=== PATIENT | male | born 1945 | race Caucasian/White ===

== ENCOUNTER 2025-08-22 07:20 | Outpatient (CLI) | payer MEDICARE, OTHER ==
[2025-08-22 07:56] LABS: ALT (SGPT) 37 U/L (Less than 45); AST (SGOT) 38 U/L (11-34); Albumin 4.0 g/dL (3.1-4.5); Alkaline Phosphatase 49 U/L (40-110); Anion Gap 12 mmol/L (10-20); BUN (Urea Nitrogen) 23 mg/dL (8.4-25.7); Bilirubin, Total 0.7 mg/dL (0.3-1.2); Calc. Creatinine Clearance 0 mL/min (70-130); Calcium 9.1 mg/dL (7.8-10.44); Carbon Dioxide 27 mmol/L (23-31); Cardiac Risk 2.0 (Less than 4.5); Chloride 107 mmol/L (98-107); Cholesterol 106 mg/dl (< 200 Desired); Globulin 2.8 g/dL (2.4-3.5); Glucose 110 mg/dL (83-110); HDL Cholesterol 52 mg/dL (>60 Neg Risk); LDL Cholesterol, Calculated 46 mg/dL; Potassium 4.2 mmol/L (3.5-5.1); Sodium 142 mmol/L (136-145); Triglycerides 41 mg/dL (Less than 150)
== END 2025-08-22 07:21 | disposition home or self-care (01) ==
LOC: MADLAB 07:20
PROVIDERS: ATTEND Internal Medicine Cardiovascular Disease
DX: I25.10 Atherosclerotic heart disease of native coronary artery without angina pectoris (principal)
CPT/HCPCS: 36415; 80053; 80061